=== PATIENT | female | born 1955 | race Caucasian/White ===

== ENCOUNTER → 2018-06-30 11:20 | Outpatient (CLI) | payer OTHER, SELFPAY ==
[2018-06-30 10:25] VITALS: BMI 24.0
[2018-06-30 14:21] LABS: BUN 21 mg/dL (7-18); Creatinine, Serum 0.88 mg/dL (0.55-1.02); Glucose 91 mg/dL (74-106)
[2018-06-30 14:22] LABS: Anion Gap 8 (5-15); Calcium,Total 9.2 mg/dL (8.5-10.1); Chloride 107 mmol/L (98-107); Cholesterol 228 mg/dL (200); EST Glomerular Filtration Rate 69 mL/min (>60); Est Glom Filt Rate - Afr Amer 84 mL/min (>60); High Density Lipoprotein 70 mg/dL; Sodium Level 143 mmol/L (136-145); Triglycerides 122 mg/dL; Very Low Density Lipoprotein 24 mg/dL (5-40)
--- OUTSIDE RECORDS SUMMARY | 2018-08-25 20:16 | XMS RPT_ITS ---
:1955 Author Organization OHIP Care Team Providers Name Role Phone Elfego Washington Attending Unavailable BrownHarveyElfego Referring Unavailable Brown, Elfego Attending Unavailable Brown, Elfego Referring Unavailable Brown, Elfego Primary Care Unavailable PROBLEMS PROBLEMS DATE TYPE CONDITION / CODE ATTENDING STATUS SOURCE 06/30/2018 Unknown Z23 - Encounter for Elfego Washington Active [place] immunization / Community Z23(ICD-10) Hospital Repository 06/30/2018 Unknown Z83.3 - Family Elfego Washington Active [place] history of diabetes Community mellitus / Hospital Z83.3(ICD-10) Repository 06/30/2018 Unknown M94.0 - Elfego Washington Active [place] [facility] [[facility]] / Repository M94.0(ICD-10) PROCEDURES PROCEDURES No Procedure Records FoundRESULTS RESULTS BASIC METABOLIC Collected: 06/30/2018 Status: F Source: [place] PROFILE (BMP) 11:28 AM [facility] REPOSITORY TYPE CODE TESTS RESULT OUT OF RANGE REFERENCE UNITS LAB L501.0100 74-106 mg/dL Normal GLU 91 Result Comment: Please note revised GLUCOSE reference range effective 2017. LAB L501.1000 7-18 mg/dL High BUN 21 LAB L501.1100 0.55-1.02 mg/dL Normal CREAT,SERUM 0.88 Result Comment: The validity of the calculated GFR AND GFRAA in patients over 70 years has not been determined. Clinical correlation is essential. LAB L501.1110 >60 mL/min Normal EST GFR 69 Result Comment: Non- GFR Calc LAB L501.1115 >60 mL/min Normal EST GFR - AA 84 Result Comment: GFR Calc LAB L501.1300 10-20 RATIO High BUN/CRE 24.0 LAB L501.2200 8.5-10.1 mg/dL CA Normal 9.2 LAB L501.5300 136-145 mmol/L NA Normal 143 LAB L501.5600 3.5-5.1 mmol/L K Normal 4.0 LAB L501.5900 98-107 mmol/L CL Normal 107 LAB L501.6100 21.0-32.0 mmol/L Normal CO2 28.0 LAB L501.6200 5-15 Normal GAP 8 Performed By: #### L500.2500, L500.4100 #### [facility] [address] [place], [address] LIPID PROFILE Collected: 06/30/2018 Status: F Source: BRIXEY 11:28 AM [facility] REPOSITORY TYPE CODE TESTS RESULT OUT OF RANGE REFERENCE UNITS LAB L501.4900 200 mg/dL High CHOL 228 Result Comment: <200 mg/dL Desirable 200-240 mg/dL Borderline >240 mg/dL High Risk LAB L501.5000 mg/dL Normal TRIG 122 Result Comment: The drugs N-Acetylcysteine and Metamizole may falsely depress this assay. Serum Triglycerides Reference Interval Normal <150 mg/dL Borderline high 150 - 199 mg/dL High 200 - 499 mg/dL Very High > or = 500 mg/dL LAB L501.6400 mg/dL Normal HDL 70 Result Comment: The drugs N-Acetylcysteine and Metamizole may falsely depress this assay. Reference Range HDL <40 mg/dL Low HDL Cholesterol HDL >or= 60 mg/dL High HDL Cholesterol LAB L501.6500 0-130 mg/dL High LDL 134 LAB L501.6600 5-40 mg/dL Normal VLDL 24 Performed By: #### L500.2500, L500.4100 #### [facility] [address] 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 Chief Complaint: pain through collar area Is patient in pain?: Yes (intercostal, collar area, with ROM) Pain scale (1-10): 3 Allergies clindamycin Allergy (Severe, Verified 06/30/18 10:21) cdif tetracycline Allergy (Intermediate, Verified 06/30/18 10:21) hives Medications diclofenac sodium 50 mg tablet,delayed release 50 mg PO BID #20 tab 06/30/18 [Rx Confirmed 06/30/18] Post menopausal: Yes PFSH Surgical History H/O lumpectomy (Acute) History of back surgery (Acute) Family History Sister Alcoholic Anxiety Mother Arthritis Social History Smoking Status: Never smoker alcohol intake: current alcohol intake frequency: 0-2 drinks per day Alcohol type: wine substance use type: does not use what type of physical activity do you participate in: walking HPI HPI Chief Complaint: pain through collar area Details: ANNABELLA SPRAGUE, is a 62 F who presents to the office today for vague chest pain that is worse on motion. It is not an exertional chest pain when it started several weeks ago it was almost in the epigastric area but now she feels it in the collarbone area. It is worse when she moves changes positions slightly sore on touch she has had problems with costochondritis in the past and feels that this is very similar to her previous pain. ROS Const Constitutional: No body ache, chills, headache(s), weakness or fever(s) Eyes Eyes: No blurry vision, change in vision, eye pain or discharge ENT ENT: No headache(s), abnormal hearing, ear pain, ear pressure, tinnitus, dizziness/vertigo or balance problems Resp Respiratory: No cough, shortness of breath or wheezing Cardio Cardiology: No chest pain at rest, shortness of breath, dyspnea on exertion or palpitations Gastro GI: No abdominal pain or bloating Musc Musculoskeletal: Positive for joint pain (left shoulder) and other (intercostal, collar area discomfort) Skin Skin: Positive for lesions (spot on forhead) Neuro Neurology: No headache(s), weakness or abnormal hearing Aller/Imm Allergy/Immunologic: No wheezing Exam Const General: cooperative, healthy appearing, no acute distress Nutritional Appearance: average body habitus Orientation: oriented x3 Neck Neck: normal visual inspection, no lymphadenopathy Neck mass: No Thyroid: thyroid normal Chest Chest palpation AND inspection: normal inspection of the chest, localized rib tenderness with anteroposterior compression Resp Effort AND Inspection: normal respiratory effort Auscultation: Bilateral: Clear to Auscultation Cardio Rate: regular rate Rhythm: regular rhythm Skin Lesions: lesion noted (papilloma on the forehead) Neuro General: oriented x3 Cranial Nerves: CN's II-XI intact bilaterally Extrem General: normal exam except as noted Psych Appearance: grossly normal Mental Status: mental status grossly normal Immunizations Afluria Quad 2471-5234 (PF) Performing Provider: Elfego Washington DO Administered by: Radha Man on 06/30/18 11:07 Dose Route Admin Location Lot Number Expiration Date NDC Salvage Supervisor 60 mcg IM Left Deltoid [id number] 01/30/19 19559-524-28 SEQIRUS VIS Given Date VIS Publication Date 06/30/18 03/09/15 Eligibility Eligibility Date Assessment AND Plan Problems 1. Costochondritis M94.0 2. Family history of diabetes mellitus Z83.3 3. Immunization due Z23 Plan This patient was basically here to establish care but she also has some other questions. She periodically gets this costochondritis of the chest wall diclofenac is worked in the past and she wanted some more. I also met manipulatively treated her upper dorsal area as I think that was part of the problem for the costochondritis. She needed a flu shot that was given and has not had any preventative blood work which was also ordered physically other than the mild chest tenderness everything seemed to be completely normal. Orders Orders: Medications New: Discontinued: Afluria Quad 8302-6770 (PF) (flu vacc quad 2018(5 y60 mcg (0.5 mL) IM ONCE 1 mL 0RF NS Z23 r up)-PF) Discontinued Reason: Office Medicatio n has been Documented as given Plan Detail Follow Up 1 Year Coding Level of Care Code Off vis,est,level 3 Diagnoses Costochondritis M94.0 Family history of diabetes mellitus Z83.3 Immunization due Z23 06/30/18 1116 <Electronically signed by Elfego R Brown DO> Date Elfego Washington DO Cosignregis Signature: Date (if applicable) CC: ALLERGIES ALLERGIES DATE TYPE / CODE NAME / CODE REACTION SEVERITY SOURCE 06/30/2018 Drug tetracycline Hives MO [facility] Allergy/4160 /[id number]( Hospital [address]67(SNOMED RXNORM) Repository CT) 06/30/2018 Drug clindamycin/ cdif SV [facility] Allergy/4160 [id number]( Hospital [address]09(SNOMED XNORM) Repository CT) ENCOUNTERS ENCOUNTERS ADMIT/DISCHARGE ACCOUNT ADMITTING ENCOUNTER LOCATION SOURCE NUMBER CLASS 06/30/2018 [id number] Ambulatory [place] 0 [facility] ing:MTLAB Repository 06/30/2018/ [id number] Ambulatory BMSBuilding:B [place] 8 8 [place].[facility] Repository PAYERS PAYERS ENCOUNTER GUARANTOR PAYER SUBSCRIBER SOURCE 06/30/2018 ANNABELLA S Primary ANNABELLA S [place] [id number] Insurance:MEDICAL PARFITTDOB: [id number] [address]Foq: Number: Repository [id number] () Date:3235-31-21YF [address] [place] [phone]: 06/30/2018 Secondary NOT GIVENUNK [place] Insurance:SELF PAY [facility] Number: Effective Repository Date:2018-06-30 06/30/2018 ANNABELLA Primary ANNABELLA Leonard [id number] Insurance:MEDICAL PARFITTDOB: [facility] [id number] [facility] [address]Bde: Number: Repository [id number] () Date:6072-20-09ZY [address], [place] [address]XK: 06/30/2018 Secondary NOT GIVENUNK [place] Insurance:SELF PAY [facility] Number: Effective Repository Date:2018-06-11
== END ==
PROVIDERS: Family Provider Family Medicine; PCP Family Medicine; Referring Provider Family Medicine; Visit Provider Family Medicine
DX: Z83.3 Family history of diabetes mellitus (principal)
CPT/HCPCS: 36415; 80048; 80061

== ENCOUNTER → 2018-08-24 09:23 | Outpatient (CLI) | payer OTHER, SELFPAY ==
[2018-08-18 16:10] VITALS: BMI 24.0
--- NOTE | 2018-08-24 09:26 | RAD_ITS ---
STUDY: X-RAY CHEST REASON FOR EXAM: Female, 63 years old. Chest pain TECHNIQUE: PA and lateral views of the chest. COMPARISON: None. FINDINGS: The lungs are clear and expanded. There is no demonstrated pleural abnormality. Normal size heart. Normal mediastinum and papo. Normal visualized pulmonary arteries. Normal visualized aortic arch and descending thoracic aorta. Normal visualized thoracic spine. Normal visualized ribs, clavicles, and shoulders. There is no demonstrated abnormality of the visualized soft tissue structures of the upper abdomen. RAD/Chest PA and Lateral IMPRESSION: Normal x-ray examination of the chest. Electronically Signed: Foster Vieyra DO at 9:59 EST Tel , Service support ,
[2018-08-24 10:40] LABS: Erythrocyte Sedimentation Rate 4 mm/hr (0-30)
--- OUTSIDE RECORDS SUMMARY | 2018-10-26 10:41 | XMS RPT_ITS ---
:1955 Author Organization OHIP Care Team Providers Name Role Phone Brown, Elfego Attending Unavailable Brown, Elfego Referring Unavailable Brown, Elfego Attending Unavailable Brown, Elfego Referring Unavailable Brown, Elfego Primary Care Unavailable Brown, Elfego Attending Unavailable Brown, Elfego Referring Unavailable Brown, Elfego Attending Unavailable Brown, Elfego Referring Unavailable Brown, Elfego Primary Care Unavailable PROBLEMS PROBLEMS DATE TYPE CONDITION / CODE ATTENDING STATUS SOURCE 08/24/2018 Unknown R07.89 - Other BrownElfego Active [place] chest pain / Community R07.89(ICD-10) Hospital Repository 08/24/2018 Unknown M94.0 - Brown, Elfego Active [place] [facility] / Repository M94.0(ICD-10) 06/30/2018 Unknown Z23 - Encounter for Elfego Washington Active [place] immunization / Community Z23(ICD-10) Hospital Repository 06/30/2018 Unknown Z83.3 - Family Elfego Washington Active [place] history of diabetes Community mellitus / Hospital Z83.3(ICD-10) Repository PROCEDURES PROCEDURES No Procedure Records FoundRESULTS RESULTS ERYTHROCYTE SED RATE Collected: 08/24/2018 Status: F Source: [place] 9:28 AM [facility] REPOSITORY TYPE CODE TESTS RESULT OUT OF RANGE REFERENCE UNITS LAB L102.0000 0-30 mm/hr Normal SED RATE 4 Performed By: #### L101.9900 #### [facility] [address] [place] [address]. [place], [address] CHEST PA AND LATERAL Observed: 08/24/2018 Status: F Source: [place] 9:27 AM [facility] REPOSITORY [facility] Imaging Services [address] [place] [address] Chest PA and Lateral MR#: [id number] Acct: [id number] Name: ANNABELLA SPRAGUE Rep #: [id number] : 1955 F 63 From: Foster Vieyra DO PCP: Elfego Washington DO Status: REG CLI Study: Chest PA and Lateral Date of Exam: 08/24/18 Exam# [id number] Ordering Dr: Elfego Washington DO STUDY: X-RAY CHEST REASON FOR EXAM: Female, 63 years old. Chest pain TECHNIQUE: PA and lateral views of the chest. COMPARISON: None. FINDINGS: The lungs are clear and expanded. There is no demonstrated pleural abnormality. Normal size heart. Normal mediastinum and papo. Normal visualized pulmonary arteries. Normal visualized aortic arch and descending thoracic aorta. Normal visualized thoracic spine. Normal visualized ribs, clavicles, and shoulders. There is no demonstrated abnormality of the visualized soft tissue structures of the upper abdomen. RAD/Chest PA and Lateral IMPRESSION: Normal x-ray examination of the chest. Electronically Signed: Foster Vieyra DO at 9:59 EST Tel , Service support , CC: Elfego Washington DO Core Winding Operator: Signed INTERNAL MEDICINE Observed: 08/18/2018 Status: F Source: JULIANA OFFICE VISIT 4:54 PM [facility] [address] [place] [address] [place] [address] OFFICE VISIT Date of Service: 08/18/18 MR#: [id number] Acct: [id number] Name: ANNABELLA SPRAGUE Rep #: [id number] : 1955 Provider: Elfego Washington DO Age/Sex: 63/F Location: [facility] Status: Signed Intake Vital Signs08/18/18 Body Mass Index (BMI) 24.0 08/18/18 Height 5 ft 8 in Intake Visit Reasons: problem has not resolved Chief Complaint: inflamation in the neck and collar area Is patient in pain?: Yes (neck ) Pain scale (1-10): 4 Allergies clindamycin Allergy (Severe, Verified 06/30/18 10:21) [...] participate in: walking HPI HPI Chief Complaint: inflamation in the neck and collar area Details: ANNABELLA SPRAGUE, is a 63 F who presents to the office today for vague swelling and stiffness in the right and left cerebral supraclavicular area. The pain is rather migratory it is not intense but it is something that bothers her. ROS Const Constitutional: No weight change, body ache, chills, fatigue, sleep problems, fever(s), change in appetite, snoring, weakness, frequent falls, headache(s) or excessive sweating Eyes Eyes: No change in vision, eye pain, light sensitivity or blurry vision ENT ENT: Positive for neck pain; no headache(s), abnormal hearing, ear pain, tinnitus, nasal congestion or sore throat Resp Respiratory: No snoring, cough, shortness of breath or wheezing Cardio Cardiology: No excessive sweating, chest pain at rest, chest pain with exertion, shortness of breath, dyspnea on exertion, palpitations, orthopnea or lightheadedness Gastro GI: No abdominal pain, change in bowel habits, constipation, diarrhea, vomiting, nausea/dyspepsia or cramping Genitourinary-Female: No burning urination, painful urination, urinary incontinence, urinary frequency, abnormal vaginal bleeding, pelvic pain or other Musc Musculoskeletal: Positive for neck pain; no abnormal walking, joint pain, back pain, limited range of motion, numbness or tingling Skin Skin: No redness, dry skin, itching, lesions, wounds or rash Neuro Neurology: No weakness, frequent falls, headache(s), abnormal hearing, abnormal walking, numbness, tingling, abnormal speech, dizziness or memory loss Psych Psychiatric: No change in appetite, No memory loss, No anxiety, No depression, No Thoughts of harming yourself/Others Endo Endocrine: No fatigue, excessive sweating, cold intolerance, increased thirst/drinking, heat intolerance, flushing or increased hunger Aller/Imm Allergy/Immunologic: No wheezing, itchy eyes, hives or seasonal allergy symptoms Liang/Lymp Hematologic/Lymphatic: No easy bleeding, easy bruising or enlarged lymph nodes Exam Const General: cooperative, healthy appearing, no [...] normal Mental Status: mental status grossly normal Assessment AND Plan Problems 1. Supraclavicular fossa fullness R22.2 Plan I have very carefully inspected both supraclavicular areas and could not find any abnormality at all other than some very subjective minimal tenderness and slight subjective fullness on the left side. I thought for completeness we should get a chest x-ray get a sed rate to make sure this is not some variant of polymyalgia rheumatica. She also wanted mammograms and bone density test ordered as she no longer sees a management rep and I complied with her request. Orders Orders: Coding Level of Care Code Off vis,est,level 3 Diagnoses Supraclavicular fossa fullness R22.2 08/18/18 2382 <Electronically signed by Elfego Washington DO> Date Elfegoshavon Presley Signature: Date (if applicable) CC: BASIC METABOLIC Collected: 06/30/2018 Status: F Source: [place] PROFILE (BMP) 11:28 AM [facility] REPOSITORY TYPE CODE TESTS RESULT OUT OF [...] 8 Performed By: #### L500.2500, L500.4100 #### [facility] [address] [place], [id number] LIPID PROFILE Collected: 06/30/2018 Status: F Source: [place] 11:28 AM [facility] REPOSITORY TYPE CODE TESTS RESULT OUT OF [...] 24 Performed By: #### L500.2500, L500.4100 #### [facility] [address] 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 Chief Complaint: pain [...] mental status grossly normal Immunizations Afluria Quad 0831-2839 (PF) Performing Provider: Elfego Washington DO Administered by: Radha Man on 06/30/18 11:07 Dose Route Admin Location Lot Number Expiration Date NDC Procurement Services Manager 60 mcg IM Left Deltoid [id number] 01/30/19 62451-569-68 SEQIRUS VIS Given Date VIS Publication Date [...] Orders Orders: Medications New: Discontinued: Afluria Quad 5586-6116 (PF) (flu vacc quad 2018(5 y60 mcg (0.5 mL) IM ONCE 1 mL 0RF NS Z23 r up)-PF) Discontinued Reason: Office Medicatio n has been Documented as given Plan Detail Follow Up 1 Year Coding Level of Care Code Off vis,est,level 3 Diagnoses Costochondritis M94.0 Family history of diabetes mellitus Z83.3 Immunization due Z23 06/30/18 1116 <Electronically signed by Elfego Washington DO> Date Elfego Washington DO Cosigner Signature: Date (if applicable) CC: ALLERGIES ALLERGIES DATE TYPE / CODE NAME / CODE REACTION SEVERITY SOURCE 06/30/2018 Drug tetracycline Hives MO [facility] Allergy/4160 /[id number]( [place] 1300902(SNOMED RXNORM) Repository CT) 06/30/2018 Drug clindamycin/ cdif SV [facility] Allergy/4160 [id number]([place] 4329502(SNOMED XNORM) Repository CT) ENCOUNTERS ENCOUNTERS ADMIT/DISCHARGE ACCOUNT ADMITTING ENCOUNTER LOCATION SOURCE NUMBER CLASS 08/24/2018 [id number] Ambulatory [place] 6 [facility] ing:LAB Repository 08/18/2018/ [id number] Ambulatory BMSBuilding:B [place] 9 7 [place].[facility] Repository 06/30/2018 [id number] Ambulatory [place] 0 [facility] ing:MTLAB Repository 06/30/2018/ [id number] Ambulatory BMSBuilding:B [place] 8 8 [place] [facility] [place] PAYERS PAYERS ENCOUNTER GUARANTOR PAYER SUBSCRIBER SOURCE 08/24/2018 ANNABELLA S Primary ANNABELLA [facility] [place] [id number] Insurance:MEDICAL PARFITTDOB: [id number] [address]Rom: Number: Repository [id number] () Date:4494[place]27-[place] [id number]: 08/24/2018 Secondary NOT GIVENUNK [place] Insurance:SELF PAY [facility] Number: Effective Repository Date:2018-08-24 08/18/2018 ANNABELLA S Primary ANNABELLA Leonard [id number] Insurance:MEDICAL PARFITTDOB: [facility] [id number] Cross Hospital [address]Iog: Number: Repository [id number] () Date:2218-36-03OM[place] [id number]: 08/18/2018 Secondary NOT GIVENUNK [place] Insurance:SELF PAY [facility] Number: Effective Repository Date:2018-08-12 06/30/2018 ANNABELLA S Primary ANNABELLA Leonard [id number] Insurance:MEDICAL PARFITTDOB: [facility] [id number] Cross Hospital [address]Oef: Number: Repository [id number] () Date:8314-88-30FX [address] [place] [phone]: 06/30/2018 Secondary NOT GIVENUNK [place] Insurance:SELF PAY [facility] Number: Effective Repository Date:2018-06-30 06/30/2018 ANNABELLA Primary ANNABELLA [address] [id number] Insurance:MEDICAL PARFITTDOB: Community COMET LILIYA [facility] [id number] Cross Hospital [address]Jpy: Number: Repository [id number] () Date:0007-67-21PJ [address] [place] [phone]: 06/30/2018 Secondary NOT GIVENUNK [place] Insurance:SELF PAY [facility] Number: Effective Repository Date:2018-06-11
== END ==
PROVIDERS: Family Provider Family Medicine; PCP Family Medicine; Referring Provider Family Medicine; Visit Provider Family Medicine
DX: M94.0 Chondrocostal junction syndrome [Tietze] (principal); R07.89 Other chest pain
CPT/HCPCS: 36415; 71046; 85652

== ENCOUNTER → 2018-11-23 14:04 | Outpatient (CLI) | payer OTHER, SELFPAY ==
[2018-08-18 16:10] VITALS: BMI 24.0
--- NOTE | 2018-11-23 14:48 | BI_ITS ---
MAMMOGRAPHY - BILATERAL SCREENING REASON FOR EXAM: Female, 63 years old. Routine annual screening examination. PERTINENT HISTORY: Sister with breast cancer. Remote right excisional breast biopsy. TECHNIQUE: Digital bilateral breast terrence (3D mammographic acquisition) in the CC and MLO projections. 2-D mediolateral oblique (MLO) and craniocaudad (CC) views of both breasts were obtained. CAD: Full Field Digital Mammography with Computer Added Detection was performed. COMPARISON: Comparison is made with prior outside examination March 12, 2006. FINDINGS: Breast Composition: The breasts are heterogeneously dense, which may obscure small masses. There are no dominant masses or suspicious calcifications. No other significant abnormalities are identified. There has been no significant change since the prior study. BI/SCREEN MAMM (CAD) W/TERRENCE BILAT IMPRESSION: Stable bilateral screening mammogram. Yearly follow-up mammogram recommended. (A) ASSESSMENT CATEGORY: BIRADS Category 1: Negative. A letter regarding these results will be sent to the patient by the facility within 30 days. Approximately 10% of breast cancers are not detected by mammography. A normal mammogram should not delay biopsy of a clinically suspicious abnormality. [id number] Electronically Signed: James Salmeron, at 9:10 EDT , Service support ,
--- NOTE | 2018-11-23 14:50 | BD_ITS ---
STUDY: DUAL ENERGY X-RAY ABSORPTIOMETRY / DXA REASON FOR EXAM: Female, 63 years old. Early menopause. No loss of height. TECHNIQUE: Bone Mineral Density (BMD) measurements of lumbar spine and bilateral hips were obtained. COMPARISON: None. FINDINGS: Lumbar Spine (L1-L4): g/cm2 (1.083) / T-score (-0.7) / Z-score (0.8) Findings are suggestive of normal bone density with a low fracture risk. Left Femur Total: g/cm2 (0.940) / T-score (-0.5) / Z-score (0.6) Left Femoral Neck: g/cm2 (0.877) / T-score (-1.2) / Z-score (0.3) Right Femur Total: g/cm2 (0.960) / T-score (-0.4) / Z-score (0.8) Right Femoral Neck: g/cm2 (0.878) / T-score (-1.1) / Z-score (0.3) BD/Dexa Bone Density Study IMPRESSION: The patient is considered osteopenic as outlined below according to World Adolfo Organization (WHO) criteria with a low fracture risk. Reference Information: The T-score is the number of standard deviations above or below the standard which is normal for young adults at their peak bone mineral density. The World Health Organization (WHO) interprets the T-scores as follows: Above -1 Normal bone density Between -1 and -2.5 Osteopenia Equal to / or below -2.5 Osteoporosis As a practical clinical guideline, osteopenia may be graded as follows: Mild -1 through -1.5 Moderate -1.6 through -2.0 Severe -2.1 through -2.4 The Z-score is the number of standard deviations above or below age-matched controls. A Z-score of less than -1.5 would be considered abnormal. References: 1. NIH Osteoporosis and Related Bone Diseases http://www.osteo.org 2. International Society for Clinical Densitometry http://www.iscd.org 3. National Osteoporosis Foundation http://www.nof.org Electronically Signed: James Salmeron, at 8:41 EDT , Service support ,
== END ==
PROVIDERS: Family Provider Family Medicine; PCP Family Medicine; Referring Provider Family Medicine; Visit Provider Family Medicine
DX: Z12.31 Encounter for screening mammogram for malignant neoplasm of breast (principal); Z78.0 Asymptomatic menopausal state
CPT/HCPCS: 77063; 77067; 77080

== ENCOUNTER → 2019-04-01 11:43 | Outpatient (CLI) | payer OTHER, SELFPAY ==
[2019-04-01 11:13] VITALS: BMI 23.6
--- NOTE | 2019-04-01 11:45 | RAD_ITS ---
STUDY: X-RAY RIGHT FOOT, FIFTH TOE REASON FOR EXAM: Female, 63 years old. Pain following injury. TECHNIQUE: 3 view(s) of the toe were obtained. COMPARISON: None. FINDINGS: Normal visualized metatarsus. Normal metatarsophalangeal (M.T.P) joint. Normal interphalangeal joints. Slightly dorsally displaced fracture at the base of the distal phalanx of the fifth toe with overlying soft tissue swelling. Soft tissue swelling. RAD/Toe(s) Min 2 Views IMPRESSION: Sightly posteriorly displaced fracture at the base of the distal phalanx of the fifth toe with overlying soft tissue swelling. Electronically Signed: James Salmeron, at 13:04 EDT , Service support ,
== END ==
PROVIDERS: Family Provider Family Medicine; PCP Family Medicine; Referring Provider Nurse Practitioner Family; Visit Provider Nurse Practitioner Family
DX: S97.121A Crushing injury of right lesser toe(s), initial encounter (principal); X58.XXXA Exposure to other specified factors, initial encounter; Y93.9 Activity, unspecified; Y92.9 Unspecified place or not applicable; Y99.9 Unspecified external cause status
CPT/HCPCS: 73660

== ENCOUNTER → 2019-05-30 10:14 | Outpatient (CLI) | payer OTHER, SELFPAY ==
[2019-04-20 11:08] VITALS: BMI 23.6
--- NOTE | 2019-05-30 10:16 | MRI_ITS ---
STUDY: MRA OF THE HEAD WITHOUT CONTRAST REASON FOR EXAM: Female, 63 years old. Aphasia, memory loss TECHNIQUE: 3-D hhdo-dv-zngahg (TOF) imaging was performed with MIPs. The study was performed unenhanced. COMPARISON: None. FINDINGS: Normal bilateral petrous carotid arteries. Normal right cavernous carotid artery with a normal supraclinoid bifurcation. Normal left cavernous carotid artery with a normal supraclinoid bifurcation. Normal right A1 segments of the anterior cerebral artery. Normal left A1 segments of the anterior cerebral artery. Normal intact anterior communicating artery (ACOM). Normal bilateral A2 segments of the anterior cerebral arteries. Normal right M1 and M2 segments of the middle cerebral arteries, with a normal M1 bifurcation. Normal left M1 and M2 segments of the middle cerebral arteries, with a normal M1 bifurcation. Normal right posterior communicating artery (PCOM). Normal left posterior communicating artery (PCOM). Normal bilateral vertebral arteries. Normal basilar artery with a normal basilar bifurcation. The visualized bilateral superior cerebellar (SCA) arteries are normal. Normal bilateral P1, P2 and visualized P3 segments of the posterior cerebral arteries. There is no demonstrated aneurysm of the iliamna of [place]. There is no major vessel occlusion or hemodynamically significant stenosis. There is no demonstrated abnormality of the visualized brain. MRI/MRA Head ONLY without Contrast IMPRESSION: Normal MRA of the head Electronically Signed: Naersh Boogie MD at 11:47 EDT Tel , Service support ,
== END ==
PROVIDERS: Family Provider Family Medicine; PCP Family Medicine; Referring Provider Family Medicine; Visit Provider Family Medicine
DX: R47.01 Aphasia (principal); I63.81 Other cerebral infarction due to occlusion or stenosis of small artery
CPT/HCPCS: 70544

== ENCOUNTER → 2020-12-12 11:27 | Outpatient (CLI) | payer MEDICARE, SELFPAY ==
[2020-12-12 11:07] VITALS: BMI 23.6
[2020-12-12 12:22] LABS: Absolute Lymphocyte Count 2.15 X10^3/uL (0.83-4.51); Absolute Neutrophil Count 2.6 X10^3/uL (2.0-7.7); Basophil# 0.01 X10^3/uL; Basophil% 0.2 % (0-1); Eosinophil# 0.09 X10^3/uL; Eosinophils% 1.7 % (0-5); Hematocrit 46.5 % (37-47); Hemoglobin 14.3 g/dL (12.0-15.0); Lymphocyte # 2.15 X10^3/ul (0.83-4.51); Lymphocyte % 41.2 % (19-41); Mean Corp Hgb Conc 30.8 g/dL (32-36); Mean Corpuscular Hgb 31.2 pg (27.0-32.0); Mean Corpuscular Volume 101.5 fL (81-99); Mean Platelet Vol. 11.5 fl (6.2-12.0); Monocyte# 0.38 X10^3/uL; Monocyte% 7.3 % (0-10); NRBC Flagged by Analyzer 0 % (0-5); Neutrophil # 2.58 X10^3/uL (2.7-7.7); Neutrophil % 49.4 % (47-70); Platelet Count 256 K/mm3 (150-450); RBC Distribution Width CV 13.2 % (11.6-14.6); RBC Distribution Width SD 50.3 fl (35.1-43.9); Red Blood Count 4.58 M/mm3 (4.2-5.4); White Blood Count 5.2 K/mm3 (4.4-11.0)
[2020-12-12 12:56] LABS: ALB/GLOB Ratio 1.2 RATIO (0.9-2.4); AST(SGOT) 25 U/L (15-37); Alanine Aminotransfer ALT/SGPT 39 U/L (13-56); Albumin, Serum 3.9 g/dL (3.2-5.0); Alkaline Phosphatase 55 U/L (45-117); Anion Gap 5 (5-15); BUN 17 mg/dL (7-18); BUN/Creat Ratio 20.9 RATIO (10-20); Calcium,Total 9.3 mg/dL (8.5-10.1); Chloride 108 mmol/L (98-107); Cholesterol 214 mg/dL (200); Creatinine, Serum 0.82 mg/dL (0.55-1.02); EST Glomerular Filtration Rate 75 mL/min (>60); Est Glom Filt Rate - Afr Amer 90 mL/min (>60); Globulin 3.2 g/dL (2.2-4.2); Glucose 102 mg/dL (74-106); High Density Lipoprotein 78 mg/dL; Potassium 4.3 mmol/L (3.5-5.1); Protein, Total 7.1 g/dL (6.4-8.2); Sodium Level 142 mmol/L (136-145); Triglycerides 99 mg/dL; Very Low Density Lipoprotein 20 mg/dL (5-40)
[2020-12-12 13:00] LABS: Vitamin D,25 Hydroxy 38.4 ng/mL
== END ==
PROVIDERS: PCP Family Medicine; Referring Provider Family Medicine; Visit Provider Family Medicine
DX: M81.0 Age-related osteoporosis without current pathological fracture (principal); I63.81 Other cerebral infarction due to occlusion or stenosis of small artery
CPT/HCPCS: 36415; 80053; 80061; 82306; 85025

== ENCOUNTER → 2020-12-25 09:38 | Outpatient (CLI) | payer MEDICARE, SELFPAY ==
[2020-12-12 11:07] VITALS: BMI 23.6
[2020-12-25 12:09] LABS: Platelet Count 271 K/mm3 (150-450); RET-HE 36.7 pg (30-35); Reticulocyte Count 1.41 % (0.5-1.5)
[2020-12-25 12:23] LABS: Vitamin B12 710 pg/mL (211-911)
== END ==
PROVIDERS: PCP Family Medicine; Referring Provider Family Medicine; Visit Provider Family Medicine
DX: D53.9 Nutritional anemia, unspecified (principal)
CPT/HCPCS: 36415; 82607; 82746; 85045

== ENCOUNTER → 2022-05-22 | Outpatient (CLI) | payer MEDICARE, SELFPAY ==
[2022-05-22 12:13] LABS: Absolute Lymphocyte Count 2.27 X10^3/uL (0.83-4.51); Absolute Neutrophil Count 2.5 X10^3/uL (2.0-7.7); Basophil# 0.02 X10^3/uL; Basophil% 0.4 % (0-1); Eosinophil# 0.12 X10^3/uL; Eosinophils% 2.2 % (0-5); Hematocrit 44.9 % (37-47); Hemoglobin 14.8 g/dL (12.0-15.0); Lymphocyte # 2.27 X10^3/ul (0.83-4.51); Lymphocyte % 41.9 % (19-41); Mean Platelet Vol. 10.9 fl (6.2-12.0); Monocyte# 0.49 X10^3/uL; NRBC Flagged by Analyzer 0 % (0-5); Neutrophil % 46.1 % (47-70); Platelet Count 257 K/mm3 (150-450); RBC Distribution Width CV 13.3 % (11.6-14.6); RBC Distribution Width SD 49.1 fl (35.1-43.9); Red Blood Count 4.49 M/mm3 (4.2-5.4); White Blood Count 5.4 K/mm3 (4.4-11.0)
[2022-05-22 12:32] LABS: ALB/GLOB Ratio 1.1 RATIO (0.9-2.4); AST(SGOT) 19 U/L (15-37); Alanine Aminotransfer ALT/SGPT 29 U/L (13-56); Albumin, Serum 3.4 g/dL (3.2-5.0); Alkaline Phosphatase 52 U/L (45-117); Anion Gap 4 (5-15); BUN 16 mg/dL (7-18); BUN/Creat Ratio 17.3 RATIO (10-20); Calcium,Total 8.8 mg/dL (8.5-10.1); Chloride 111 mmol/L (98-107); Cholesterol 204 mg/dL (200); Creatinine, Serum 0.93 mg/dL (0.55-1.02); EST Glomerular Filtration Rate 64 mL/min (>60); Est Glom Filt Rate - Afr Amer 78 mL/min (>60); Globulin 3.1 g/dL (2.2-4.2); Glucose 109 mg/dL (74-106); High Density Lipoprotein 64 mg/dL; Potassium 4.8 mmol/L (3.5-5.1); Protein, Total 6.5 g/dL (6.4-8.2); Sodium Level 142 mmol/L (136-145); Triglycerides 156 mg/dL; Very Low Density Lipoprotein 31 mg/dL (5-40)
== END | disposition home or self-care (01) ==
PROVIDERS: PCP Family Medicine; Referring Provider Family Medicine; Visit Provider Family Medicine
DX: D53.9 Nutritional anemia, unspecified (principal); I63.81 Other cerebral infarction due to occlusion or stenosis of small artery
CPT/HCPCS: 36415; 80053; 80061; 85025

== ENCOUNTER → 2022-07-03 | Outpatient (CLI) | payer MEDICARE, SELFPAY ==
--- NOTE | 2022-07-03 14:41 | BI_ITS ---
MAMMOGRAPHY - BILATERAL SCREENING REASON FOR EXAM: Female, 66 years old. Routine annual screening examination. PERTINENT HISTORY: Sister with breast cancer. Remote right excisional breast biopsy. TECHNIQUE: Digital bilateral breast terrence (3D mammographic acquisition) in the CC and MLO projections. 2-D mediolateral oblique (MLO) and craniocaudad (CC) views of both breasts were obtained. CAD: Full Field Digital Mammography with Computer Added Detection was performed. COMPARISON: Comparison is made with prior study dated 11/23/2018 FINDINGS: Breast Composition: The breasts are heterogeneously dense, which may obscure small masses. There are no dominant masses or suspicious calcifications. Stable small benign-appearing bilateral axillary lymph nodes. No other significant abnormalities are identified. There has been no significant change since the prior study. BI/SCRN MAMM (CAD)W/TERRENCE BILAT IMPRESSION: Stable bilateral screening mammogram. Yearly follow-up mammogram recommended. (A) ASSESSMENT CATEGORY: BIRADS Category 2: Benign. A letter regarding these results will be sent to the patient by the facility within 30 days. Approximately 10% of breast cancers are not detected by mammography. A normal mammogram should not delay biopsy of a clinically suspicious abnormality. [id number] Electronically Signed: James Salmeron MD at 8:30 EST ,
--- NOTE | 2022-07-03 14:47 | BD_ITS ---
STUDY: DUAL ENERGY X-RAY ABSORPTIOMETRY / DXA REASON FOR EXAM: Female, 66 years old. Osteopenia TECHNIQUE: Bone Mineral Density (BMD) measurements of lumbar spine and bilateral hips were obtained. COMPARISON: Comparison is made with prior study dated 11/23/2018. FINDINGS: Lumbar Spine (L1-L4): g/cm2 (1.004) / T-score (-0.4) / Z-score (1.6) Findings are suggestive of normal bone density with a low fracture risk. Left Femur Total: g/cm2 (0.861) / T-score (-0.7) / Z-score (0.7) Left Femoral Neck: g/cm2 (0.661) / T-score (-1.7) / Z-score (0.0) Right Femur Total: g/cm2 (0.880) / T-score (-0.5) / Z-score (0.9) Right Femoral Neck: g/cm2 (0.693) / T-score (-1.4) / Z-score (0.3) The T-Scores on the most recent prior examination were: Lumbar Spine (L1-L4): There has been worsening of bone density since the previous examination. Left Femur Total: which represents a worsening of 1.6%. Right Femur Total: which represents a worsening of 1.7%. BD/Dexa Bone Density Study IMPRESSION: The patient is considered osteopenic as outlined below according to World Adolfo Organization (WHO) criteria with a moderate fracture risk. There has been worsening of bone density since the previous examination. Reference Information: The T-score is the number of standard deviations above or below the standard which is normal for young adults at their peak bone mineral density. The World Health Organization (WHO) interprets the T-scores as follows: Above -1 Normal bone density Between -1 and -2.5 Osteopenia Equal to / or below -2.5 Osteoporosis As a practical clinical guideline, osteopenia may be graded as follows: Mild -1 through -1.5 Moderate -1.6 through -2.0 Severe -2.1 through -2.4 The Z-score is the number of standard deviations above or below age-matched controls. A Z-score of less than -1.5 would be considered abnormal. References: 1. NIH Osteoporosis and Related Bone Diseases www osteo.org 2. International Society for Clinical Densitometry www iscd.org 3. National Osteoporosis Foundation www nof.org Electronically Signed: James Salmeron MD at 9:51 EST ,
== END | disposition home or self-care (01) ==
LOC: OPBD 14:37
PROVIDERS: PCP Family Medicine; Visit Provider Family Medicine
DX: Z12.31 Encounter for screening mammogram for malignant neoplasm of breast (principal); Z80.3 Family history of malignant neoplasm of breast; Z78.0 Asymptomatic menopausal state
CPT/HCPCS: 77063; 77067; 77080

== ENCOUNTER → 2023-06-11 | Outpatient (CLI) | payer MEDICARE, SELFPAY ==
[2023-06-11 15:04] LABS: Absolute Lymphocyte Count 2.43 X10^3/uL (0.83-4.51); Absolute Neutrophil Count 3.3 X10^3/uL (2.0-7.7); Basophil# 0.02 X10^3/uL; Basophil% 0.3 % (0-1); Eosinophil# 0.16 X10^3/uL; Eosinophils% 2.4 % (0-5); Hemoglobin 14.1 g/dL (12.0-15.0); Lymphocyte # 2.43 X10^3/ul (0.83-4.51); Lymphocyte % 36.9 % (19-41); Mean Corp Hgb Conc 31.3 g/dL (32-36); Mean Corpuscular Hgb 32.2 pg (27.0-32.0); Mean Corpuscular Volume 102.7 fL (81-99); Mean Platelet Vol. 11.9 fl (6.2-12.0); Monocyte# 0.65 X10^3/uL; Monocyte% 9.9 % (0-10); NRBC Flagged by Analyzer 0 % (0-5); Neutrophil # 3.32 X10^3/uL (2.7-7.7); Neutrophil % 50.3 % (47-70); Platelet Count 255 K/mm3 (150-450); RBC Distribution Width CV 12.9 % (11.6-14.6); RBC Distribution Width SD 49.2 fl (35.1-43.9); Red Blood Count 4.38 M/mm3 (4.2-5.4); White Blood Count 6.6 K/mm3 (4.4-11.0)
[2023-06-11 15:29] LABS: AST(SGOT) 12 U/L (15-37); Alanine Aminotransfer ALT/SGPT 24 U/L (13-56); Albumin, Serum 3.5 g/dL (3.2-5.0); Alkaline Phosphatase 53 U/L (45-117); Anion Gap 4 (5-15); BUN 18 mg/dL (7-18); BUN/Creat Ratio 20.1 RATIO (10-20); Calcium,Total 9.3 mg/dL (8.5-10.1); Chloride 111 mmol/L (98-107); EST Glomerular Filtration Rate 66 mL/min (>60); Est Glom Filt Rate - Afr Amer 80 mL/min (>60); Globulin 3.6 g/dL (2.2-4.2); Glucose 108 mg/dL (74-106); Potassium 4.8 mmol/L (3.5-5.1); Protein, Total 7.1 g/dL (6.4-8.2); Sodium Level 142 mmol/L (136-145)
[2023-06-11 15:31] LABS: Vitamin D,25 Hydroxy 49.7 ng/mL
== END | disposition home or self-care (01) ==
LOC: BIMLAB 13:00
PROVIDERS: PCP Family Medicine; Referring Provider Family Medicine; Visit Provider Family Medicine
DX: I63.81 Other cerebral infarction due to occlusion or stenosis of small artery (principal); M85.80 Other specified disorders of bone density and structure, unspecified site
CPT/HCPCS: 36415; 80053; 82306; 85025

== ENCOUNTER → 2023-08-12 | Outpatient (CLI) | payer MEDICARE, SELFPAY ==
--- NOTE | 2023-08-12 10:32 | BI_ITS ---
MAMMOGRAPHY - BILATERAL SCREENING REASON FOR EXAM: Female, 68 years old. Routine annual screening examination. PERTINENT HISTORY: Sister with breast cancer. Remote right excisional breast biopsy. TECHNIQUE: Digital bilateral breast terrence (3D mammographic acquisition) in the CC and MLO projections. 2-D mediolateral oblique (MLO) and craniocaudad (CC) views of both breasts were obtained. CAD: Full Field Digital Mammography with Computer Added Detection was performed. COMPARISON: Comparison is made with prior study dated July 03, 2022 and November 23, 2018. FINDINGS: Breast Composition: The breasts are heterogeneously dense, which may obscure small masses. There are no dominant masses or suspicious calcifications. Stable small benign-appearing bilateral axillary lymph nodes. No other significant abnormalities are identified. There has been no significant change since the prior study. BI/SCRN MAMM (CAD)W/TERRENCE BILAT IMPRESSION: Stable bilateral screening mammogram. Yearly follow-up mammogram recommended. (A) ASSESSMENT CATEGORY: BIRADS Category 2: Benign. A letter regarding these results will be sent to the patient by the facility within 30 days. Approximately 10% of breast cancers are not detected by mammography. A normal mammogram should not delay biopsy of a clinically suspicious abnormality. [id number] Electronically Signed: James Salmeron MD at 12:24 EST ,
--- OUTSIDE RECORDS SUMMARY | 2023-08-12 10:55 | XMS RPT_ITS | CCD ---
Author Name Unknown Address [address] [place] [id number] Organization [facility] Care Team Providers Care Size Maker Name Role Phone Juan R Ellison Attending Elfego Dean Referring Unavailable Eflego Washington Primary Care Unavailable Juan R Ellison Attending Elfego Dean Referring Unavailable Elfego Washington R Primary Care Unavailable Results Test Name Value Interpretation Reference Range Facil ity Encounters Encounter Date Encounter Type Care Provider Facility Start: 10-19-2018 Patient encounter procedure Juan R perla [facility] Facility:[id number] Start: 09-29-2018 Patient encounter procedure Juan R Ellison Facility:[id number] Payers Date Payer Category Payer Unknown [id number] 1955 Unknown [id number] Unknown [id number] Summary Purpose Family History No Family History Records FoundNo Family History Records FoundNo Family History Records Found Advance Directives No Advanced Directives Records FoundNo Advanced Directives Records FoundNo Advanced Directives Records Found Additional Source Comments INFORMATION SOURCE (unrecogn ized section and content) DATE CREATED AUTHOR AUTHOR'S ORGANIZ ATION 01/04/2019 [facility] DATE CREATED AUTHOR AUTHOR'S ORGANIZ ATION 08/06/2019 [facility] FOR RECORDS PERTAINING TO PATIENTS WHO ARE OR HAVE BEEN ENROLLED IN A CHEMICAL DEPENDENCY/SUBSTANCEABUSE PROGRAM, SOME INFORMATION MAY BE OMITTED. This clinical summary was aggregated from multiple sources. Caution should be exercised in using it in the provision of clinical care. This summary normalizes information from multiple sources, and as a consequence, information in this document may materially change the coding, format and clinical context of patient data. In addition, data may be omitted in some cases. CLINICAL DECISIONS SHOULD BE BASED ON THE PRIMARY CLINICAL RECORDS. [facility]. provides no warranty or guarantee of the accuracy or completeness of information in this document.
== END | disposition home or self-care (01) ==
LOC: OPBI 10:31
PROVIDERS: PCP Family Medicine; Referring Provider Family Medicine; Visit Provider Family Medicine
DX: Z12.31 Encounter for screening mammogram for malignant neoplasm of breast (principal); Z80.3 Family history of malignant neoplasm of breast
CPT/HCPCS: 77063; 77067

== ENCOUNTER → 2024-06-16 | Outpatient (CLI) | payer MEDICARE, SELFPAY ==
--- NOTE | 2024-06-16 11:21 | US_ITS ---
INDICATION: post menopausal bleeding EXAMINATION: Ultrasound US Transvaginal Non-OB TECHNIQUE: Transvaginal (for optimal evaluation of the adnexa) pelvic ultrasound was performed. Grayscale, spectral waveform, and color flow Doppler evaluation of the adnexa. COMPARISON: FINDINGS: UTERUS: Anteverted. The uterus measures 6.1 x 4.2 x 2.8 cm. Heterogeneous uterine masses likely fibroids with 2 on the right measuring 2.6 x 1.7 cm and 1.2 x 0.9 cm. One on the left measures 1.4 x 1.1 cm. The endometrial cavity demonstrates fluid with a 6 x 6 x 8 mm nodule. . RIGHT OVARY: Nonvisualization. LEFT OVARY: Nonvisualization. FREE FLUID: None. US/Transvaginal Non- IMPRESSION: Endometrial fluid with a nodule requiring further evaluation. Multiple uterine fibroids. Nonvisualization of the ovaries. Electronically Signed: Adam Rodriguez DO at 9:33 EST Reading Location ID and State: [facility] / [place] Tel [phone], Service support ,
== END | disposition home or self-care (01) ==
LOC: US 11:20
PROVIDERS: PCP Family Medicine; Referring Provider Family Medicine; Visit Provider Family Medicine
DX: N95.0 Postmenopausal bleeding (principal)
CPT/HCPCS: 76830

== ENCOUNTER → 2024-07-13 | Outpatient (CLI) | payer MEDICARE, SELFPAY ==
[2024-07-21 11:08] LABS: HPV APTIMA, High Risk Negative (Negative)
== END | disposition home or self-care (01) ==
LOC: LABSPEC 14:06
PROVIDERS: PCP Family Medicine; Referring Provider Nurse Practitioner Family; Visit Provider Nurse Practitioner Family
DX: Z12.4 Encounter for screening for malignant neoplasm of cervix (principal); Z78.0 Asymptomatic menopausal state
CPT/HCPCS: 87624; 88175; G0145

== ENCOUNTER → 2024-08-11 | Outpatient (CLI) | payer MEDICARE, SELFPAY ==
--- NOTE | 2024-08-11 11:25 | CER_PTH ---
PATIENT: ANNABELLA SPRAGUE LOC: [facility] U#:[id number] AGE/SX: 69/F ROOM: RE08/11/[address]: ROSE MARIE Callaway : 1955 BED: DIS: 08/11/2024 SPEC #: [id number] RECD: 08/11/24 12:08 STATUS: ADRIA RERio #: [id number] SAUNDRA: 08/11/24 11:[address]: Lora Patel NP DEPT: SURGICAL PATHOLOGY RECD BY: Avelina Conley ENTERED: 08/11/24 13:49 SP TYPE: CERV OTHR DR: Dr. Elfego Washington, DO Tissues: Uterine cervix, NOS Procedures: Surgery Specimen Level IV HEADER OPERATION: Polypectomy PRE-OP DIAGNOSIS: Cervical polyp TISSUE SUBMITTED: Cervical polyp MICROSCOPIC DIAGNOSIS Cervical polyp, polypectomy: Benign ectocervical mucosal polyp. ED. 08/12/2024 MICROSCOPIC DESCRIPTION Slides are reviewed. GROSS DESCRIPTION Received is one container labeled with the patient's name and not further designated. The specimen consists of a piece of fonseca-pink polyp measuring 1.2 x 1.0 x 0.5cm. The specimen is bisected and submitted entirely in one cassette. 08/11/2024 TC:5 CPT:13136
== END | disposition home or self-care (01) ==
LOC: LABSPEC 11:35
PROVIDERS: PCP Family Medicine; Referring Provider Nurse Practitioner Women's Health; Visit Provider Nurse Practitioner Women's Health
DX: N84.1 Polyp of cervix uteri (principal)
CPT/HCPCS: 88305

== ENCOUNTER → 2024-08-16 | Outpatient (CLI) | payer MEDICARE, SELFPAY ==
[2024-08-16 15:35] LABS: ALB/GLOB Ratio 1.1 RATIO (0.9-2.4); AST(SGOT) 20 U/L (15-37); Alanine Aminotransfer ALT/SGPT 38 U/L (13-56); Albumin, Serum 4.2 g/dL (3.2-5.0); Alkaline Phosphatase 63 U/L (45-117); Anion Gap 8 (5-15); BUN 19 mg/dL (7-18); Calcium,Total 9.7 mg/dL (8.5-10.1); Chloride 111 mmol/L (98-107); Cholesterol 202 mg/dL (200); EST Glomerular Filtration Rate 58 mL/min (>60); Est Glom Filt Rate - Afr Amer 71 mL/min (>60); Globulin 3.9 g/dL (2.2-4.2); Glucose 100 mg/dL (74-106); High Density Lipoprotein 84 mg/dL; Potassium 4.1 mmol/L (3.5-5.1); Protein, Total 8.1 g/dL (6.4-8.2); Sodium Level 142 mmol/L (136-145); Triglycerides 132 mg/dL; Very Low Density Lipoprotein 26 mg/dL (5-40)
== END | disposition home or self-care (01) ==
LOC: BIMLAB 13:54
PROVIDERS: PCP Family Medicine; Referring Provider Family Medicine; Visit Provider Family Medicine
DX: E78.49 Other hyperlipidemia (principal)
CPT/HCPCS: 36415; 80053; 80061

== ENCOUNTER → 2024-10-11 | Outpatient (CLI) | payer MEDICARE, SELFPAY ==
--- NOTE | 2024-10-11 09:19 | US_ITS ---
PROCEDURE: TRANSVAGINAL NON- (USTVAG), N/A REASON FOR EXAM: PMB TECHNIQUE: Grayscale and color doppler transvaginal pelvic ultrasound was performed. COMPARISON: None FINDINGS: Uterus: 6.8 x 5.6 x 3.0 cm, Retroflexed. Ill-defined heterogeneous mixed echogenicity presumed fibroid posteriorly measures 2.8 x 2.4 x 1.9 cm. This is largely intramural but demonstrates submucosal and subserosal components. Additional hypoechoic presumed fibroid measures 0.9 x 1.2 x 1.1 cm and appears mostly intramural although with a subserosal component. Endometrium: Difficult to discretely measure. Fluid is present in the endometrial cavity, outlining an isoechoic mass measuring 0.8 x 0.6 x 0.7 cm. No detected vascularity. Cervix: Grossly unremarkable.. Right ovary: Not visualized. Left ovary: Nonvisualized. Free fluid: None visualized. Other: None. US/Transvaginal Non- IMPRESSION: 1. 0.8 cm mass within the endometrial cavity, potentially endometrial or exophy tic and myometrial in origin. Neoplasm can not be excluded and clinical follow-up including direct visualization and tissue sampl ing are recommended given the context. 2. Fluid within the endometrial cavity is nonspecific but unexpected in a postm enopausal female, compatible with the provided history. This may be related to the above finding. 3. Presumed fibroids up to 2.8 cm, the larger of which demonstrates a small sub mucosal component. This could be an additional etiology for abnormal bleeding. 4. Nonvisualized bilateral ovaries. 5. Additional description as above. Reading Location: [id number]
== END | disposition home or self-care (01) ==
LOC: US 09:17
PROVIDERS: PCP Family Medicine; Referring Provider Nurse Practitioner Women's Health; Visit Provider Nurse Practitioner Women's Health
DX: N95.0 Postmenopausal bleeding (principal)
CPT/HCPCS: 76830

== ENCOUNTER 2024-12-13 11:14 | Day surgery (SDC) | payer MEDICARE, SELFPAY ==
--- NOTE | 2024-12-06 09:42 | EKG12_ITS ---
Test Reason : PRE OP Blood Pressure : */* mmHG Vent. Rate : 64 BPM Atrial Rate : 64 BPM P-R Int : 158 ms QRS Dur : 80 ms QT Int : 406 ms P-R-T Axes : 45 49 -12 degrees QTcB Int : 418 ms Normal sinus rhythm Septal infarct , age undetermined Abnormal ECG Non-specific ST & T wave changes Confirmed by Hima Stapleton ([id number]), purchase request editor CARRIE DANIELS ([id number]) on 12/09/2024 12:11:11 PM Referred By: Micaela Jett Confirmed By: Hima Stapleton
[2024-12-06 11:42] LABS: ALB/GLOB Ratio 1.6 RATIO (0.9-2.4); AST(SGOT) 24 U/L (<=31); Alanine Aminotransfer ALT/SGPT 26 U/L (<=34); Albumin, Serum 4.3 g/dL (3.4-4.8); Alkaline Phosphatase 56 U/L (35-104); Anion Gap 13 (5-15); BUN 16 mg/dL (4-19); BUN/Creat Ratio 17.3 RATIO (10-20); Calcium,Total 9.6 mg/dL (7.6-11.0); Carbon Dioxide 21.1 mmol/L (21.0-32.0); Chloride 107 mmol/L (98-108); Creatinine, Serum 0.93 mg/dL (0.70-1.20); EST Glomerular Filtration Rate 67 (>60); Estimated Creatinine Clearance 56.78 ml/min (50-250); Globulin 2.6 g/dL (2.2-4.2); Glucose 103 mg/dL (70-99); Potassium 4.4 mmol/L (3.3-5.1); Protein, Total 6.9 g/dL (5.9-8.4); Sodium Level 142 mmol/L (133-145); Total Bilirubin 0.36 mg/dL (0.00-1.30)
--- NOTE | 2024-12-07 12:04 | PAT.ANESEVAL ---
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 When Was Last Pacemaker Check QUESTION #4 FULL TEXT: You/Your Family Experience fever (hyperthermia) with Anesthesia Last Oral Intake Last Oral intake: Last Oral Intake NPO since Meds taken in AM with sips of water? 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 Female Yes 11/29/24 08:52 HX of Motion Sickness No 11/29/24 08:52 HX of N/V After Surgery No 11/29/24 08:52 Non-Smoker Yes 11/29/24 08:52 Duration of Surgery greater No 11/29/24 08:52 than 60 minutes Number of Risk Factors 2 11/29/24 08:52 PONV Score Moderate Risk 11/29/24 08:52 Height & Weight Height & Weight: Anesthesia: Height & Weight Height 5 ft 8 in 11/03/24 13:09 Respiratory Assessment Respiratory Assessment - aerial applicator pilot: Respiratory Tract Infection Hx - aerial applicator pilot Hx Respiratory Tract Infection No 11/29/24 08:52 STOP Sleep Apnea STOP Sleep Apnea - aerial applicator pilot: STOP Sleep Apnea - aerial applicator pilot Hx Hypertension No 11/29/24 08:52 Hx Sleep Apnea No 11/29/24 08:52 CPAP BIPAP Do you snore loudly (louder No 11/29/24 08:52 than talking or can be heard Do you often feel tired/ No 11/29/24 08:52 fatigued/ sleepy during daytime? Has anyone observed you stop No 11/29/24 08:52 breathing during sleep? STOP Results Negative 11/29/24 08:52 QUESTION #5 FULL TEXT : Do you snore loudly (louder than talking or can be heard through closed doors)? 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 Specify any problems Hx of Preganancy in last 3 N/A 11/29/24 08:52 Months Nurse Filling Out Transfusion NBUCHER 11/29/24 08:52 & Questions: Date: 11/29/24 11/29/24 08:52 Time: 08:53 11/29/24 08:52 Patient unable to answer at this time (ie. confused, unrespo /Reproduction History /Reproductive History - aerial applicator pilot: /Reproductive Hx- aerial applicator pilot Hx Now No 11/29/24 08:52 Gestational Age (in weeks): EDC: Hx Hx Para Hx Section SAB No 11/29/24 08:52 [facility] Medical History (Updated 11/29/24 @ 08:57 by Charline Hilario) Post-menopausal History of Clostridium difficile infection Wears glasses High cholesterol Migraine headache Non-smoker Leg cramps Lacunar stroke Home Medications ?Medication ?Instructions ?Recorded ?Last Taken ?Type rosuvastatin 5 mg tablet (Crestor) 5 mg PO DAILY #90 tabs 08/16/24 Unknown Rx biotin 5 mg capsule 5 mg PO DAILY 11/29/24 Unknown History lactobacillus comb no.10 20 20,000 mmu cells PO DAILY 11/29/24 Unknown History billion cell capsule (Probiotic) magnesium 200 mg tablet 200 mg PO DAILY PRN cramps 11/29/24 Unknown History melatonin 3 mg capsule 3 mg PO QHS 11/29/24 Unknown History Allergy/AdvReac Type Severity Reaction Status Date / Time clindamycin Allergy Severe cdif Verified 11/29/24 08:49 tetracycline Allergy Intermediate hives Verified 11/29/24 08:49 Family History Sister Alcoholic Anxiety Mother Arthritis Surgical History (Updated 11/29/24 @ 08:57 by Charline Hilario) History of colonoscopy H/O lumpectomy History of back surgery Social History number of children: 3 Smoking Status: Never smoker alcohol intake: current alcohol intake frequency: 0-2 drinks per day Alcohol type: wine substance use type: does not use what type of physical activity do you participate in: walking Audit: Pertinent Findings Pertinent Findings EKG Perinent findings: Normal sinus rhythm Septal infarct , age undetermined Recommendation Anesthesia Recommendation Anesthesia recommendation: OPTIMIZED for anesthesia
[2024-12-07 12:25] LABS: Hematocrit 43.5 % (37-47); Hemoglobin 14.4 g/dL (12.0-15.0); Mean Corp Hgb Conc 33.1 g/dL (32-36); Mean Corpuscular Hgb 32.4 pg (27.0-32.0); Mean Platelet Vol. 11.1 fl (6.2-12.0); Platelet Count 280 K/mm3 (150-450); RBC Distribution Width CV 13.5 % (11.6-14.6); RBC Distribution Width SD 48.8 fl (35.1-43.9); Red Blood Count 4.44 M/mm3 (4.2-5.4); White Blood Count 6.2 K/mm3 (4.4-11.0)
[2024-12-13] VITALS (8 sets, daily range): BP systolic 110–139; BP diastolic 71–94; PULSE 61–80; RESP 16–18; TEMP 36.3–36.7; O2SAT 94–100; BMI 24.7
--- NOTE | 2024-12-13 11:27 | HP.PCM_ITS ---
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 Is patient in pain?: No Allergies clindamycin Allergy (Severe, Verified 11/03/24 13:13) cdiftetracycline Allergy (Intermediate, Verified 11/03/24 13:13) hives Medications ?Medication ?Instructions ?Recorded ?Confirmed ?Type rosuvastatin 5 mg tablet (Crestor) 5 mg PO DAILY #90 tabs 08/16/24 11/03/24 Rx Post menopausal: No Patient : No : No PFSH Medical History Lacunar stroke Surgical History H/O lumpectomy History of back surgery Family History Sister Alcoholic AnxietyMother Arthritis Social History number of children: 3 Smoking Status: Never smoker alcohol intake: current alcohol intake frequency: 0-2 drinks per day Alcohol type: wine substance use type: does not use what type of physical activity do you participate in: walking HPI Consult D&C needs 20 min Details: ANNABELLA SPRAGUE is a 69 year old who presents for a preoperative D&C exam. She had some dark brown discharge back in June. Ultrasound showed some fibroids and a possible endometrial polyp. She is status post polypectomy of the cervix as well. ultrasound is as follows: FINDINGS: Uterus: 6.8 x 5.6 x 3.0 cm, Retroflexed. Ill-defined heterogeneous mixed echogenicity presumed fibroid posteriorly measures 2.8 x 2.4 x 1.9 cm. This is largely intramural but demonstrates submucosal and subserosal components. Additional hypoechoic presumed fibroid measures 0.9 x 1.2 x 1.1 cm and appears mostly intramural although with a subserosal component. Endometrium: Difficult to discretely measure. Fluid is present in the endometrial cavity, outlining an isoechoic mass measuring 0.8 x 0.6 x 0.7 cm. No detected vascularity. Cervix: Grossly unremarkable.. Right ovary: Not visualized. Left ovary: Nonvisualized. Free fluid: None visualized. Other: None. US/Transvaginal Non- IMPRESSION: 1. 0.8 cm mass within the endometrial cavity, potentially endometrial or exophytic and myometrial in origin. Neoplasm can not be excluded and clinical follow-up including direct visualization and tissue sampling are recommended given the context. 2. Fluid within the endometrial cavity is nonspecific but unexpected in a postmenopausal female, compatible with the provided history. This may be related to the above finding. 3. Presumed fibroids up to 2.8 cm, the larger of which demonstrates a small submucosal component. This could be an additional etiology for abnormal bleeding. 4. Nonvisualized bilateral ovaries. 5. Additional description as above. History 2 Elective abortions Hx Para 3 Spontaneous abortions Hx # Term Pregnancies Ectopic pregnancies Hx # Pregnancies Multiple births 1 # of living children 3 Coding Level of Care Code Off vis,est,level 4 Diagnoses Stenotic cervical os N88.2 Cervical polyp N84.1 Post-menopausal bleeding N95.0 Assessment and Plan Assessment and Plan (1) Stenotic cervical os: Status: Acute Comment: EMB deferred (2) Cervical polyp: Status: Acute Comment: benign (3) Post-menopausal bleeding: Status: Acute Comment: light spot on tissue X 1 05/2024. US 1mm lining. fluid within endometrium. small fibroid. ?polyp Plan After discussing the patient's diagnosis and treatment plan options, patient wishes to proceed with surgical management. I have discussed with the patient the risks, benefits, and alternatives of the procedure which include but are not limited to risks of anesthesia, bleeding, infection, possible damage to bowel, bladder, or surrounding vasculature which could lead to additional surgery to evaluate any complications. Patient agrees to procedure and wishes to proceed. ACOG/uptodate references given for additional information regarding procedure. plan for hysteroscopy D&C, possible polypectomy or myomectomy pending findings. we discussed that due to her stenotic cervix we may not be able to do any of this and will need to discuss either hysterectomy or close observation.
--- NOTE | 2024-12-13 11:27 | DCINST_ITS ---
Discharge Instructions Diet Discharge Diet: No restrictions DC O2, CPAP, BIPAP needs Home O2 Discharge instructions: No Dressing / Incision Discharge Activity: Return to Normal Activity, May Shower and May Take a Tub Bath (after 1 week) May resume sexual activity in: 1-2 weeks Weight Bearing Status: Weight bearing as tolerated Lifting Restrictions: none Dressing / Incision Call your doctor if you observe: Fever of 101 or Higher, Using more than 1 pad per hour, Shortness of breath and Uncontrolled pain Follow Up Care Please Follow Up With: Micaela Jett DO When: Call [phone] to schedule appointment. Test Results: Test results from this visit will be discussed in further detail at your follow- up appointment, if applicable. Discharge Plan Admission Attending Provider: Micaela Jett Primary Care Provider: Elfego Washington Instructions Print Language: Turkish Discharge Orders/Prescriptions Prescriptions: No Action rosuvastatin [Crestor] 5 mg tablet 5 mg PO DAILY Qty: 90 3RF Probiotic 20 billion cell capsule 20,000 mmu cells PO DAILY Rx Instructions: administer with a meal biotin 5 mg capsule 5 mg PO DAILY magnesium 200 mg tablet 200 mg PO DAILY PRN (Reason: cramps) melatonin 3 mg capsule 3 mg PO QHS Other Ambulatory Orders: 12 Lead EKG (Routine) Timeframe: [id number] Location: None Selected Ordered By: Dr. Roass Butler Referrals / Follow Up: Elfego Washington DO [Primary Care Provider] - Disposition Disposition (needs filled in before D/C Order can be placed): Home, Self Care
[2024-12-13] MEDS: Lactated Ringers 1,000 ML 15 ML IV (11:58)
--- NOTE | 2024-12-13 12:14 | PCM.PRE.AN2 ---
ASA Classification* ASA Classification ASA Classification: 3 Assessment & Plan Anesthesia* Anesthesia Assessment Anesthesia Assessment: Discussed sedation and/or anesthesia options, risks, benefits, and alternatives with patient/parents/legal guardian/POA. Questions invited. The patient/parents/legal guardian/POA seems to understand and agrees to proceed with anesthesia plan. Reviewed the physical assessment, medical history, allergy history and patient home medications list prior to surgery/procedure/anesthetic and documented any changes. Performed airway and anesthesia risk assessments. Anesthesia Type Anesthesia Type: General History Source History Obtained from:: Patient and Chart Anesthesia Focused Assessment* Temperature: 98 F Pulse Rate: 61 Blood Pressure: 139/94 Respiratory Rate: 16 Pulse Ox: 98 Airway Assessment Mouth opens: >3 cm Mallampati Score: II Focused Labs Anesthesia Preop lab: CBC WBC 6.2 K/mm3 (4.4-11.0) 12/07/24 10:12/07/24 RBC 4.44 M/mm3 (4.2-5.4) 12/07/24 10:12/07/24 Hgb 14.4 g/dL (12.0-15.0) 12/07/24 10:12/07/24 Hct 43.5 % (37-47) 12/07/24 10:12/07/24 Plt Count 280 K/mm3 (150-450) 12/07/24 10:20 12/07/24 CHEMISTRY Potassium 4.4 mmol/L (3.3-5.1) 12/06/24 10:12/06/24 Sodium 142 mmol/L (133-145) 12/06/24 10:12/06/24 BUN 16 mg/dL (4-19) 12/06/24 10:12/06/24 Creatinine 0.93 mg/dL (0.70-1.20) 12/06/24 10:12/06/24 Glucose 103 mg/dL (70-99) H 12/06/24 10:12/06/24 COAG Pre-Assessment Diagnosis/Proposed Procedure Planned Operative Procedure(s): Hysteroscopy,Myomectomy with Symphion Anesthesia History 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 When Was Last Pacemaker Check QUESTION #4 FULL TEXT: You/Your Family Experience fever (hyperthermia) with Anesthesia Last Oral Intake Last Oral intake: Last Oral Intake NPO since 23:30 12/13/24 11:46 Meds taken in AM with sips of water? Meds patient instructed to take am of surgery PONV PONV - biochemical development engineer: PONV - biochemical development engineer Female Yes 11/29/24 08:52 HX of Motion Sickness No 11/29/24 08:52 HX of N/V After Surgery No 11/29/24 08:52 Non-Smoker Yes 11/29/24 08:52 Duration of Surgery greater No 11/29/24 08:52 than 60 minutes Number of Risk Factors 2 11/29/24 08:52 PONV Score Moderate Risk 11/29/24 08:52 Height & Weight Height & Weight: Anesthesia: Height & Weight Height 5 ft 8 in 12/13/24 11:46 Weight: 73.7 kg 12/13/24 11:46 Body Mass Index (BMI) 24.7 12/13/24 11:46 Respiratory Assessment Respiratory Assessment - biochemical development engineer: Respiratory Tract Infection Hx - biochemical development engineer Hx Respiratory Tract Infection No 11/29/24 08:52 STOP Sleep Apnea STOP Sleep Apnea - biochemical development engineer: STOP Sleep Apnea - biochemical development engineer Hx Hypertension No 11/29/24 08:52 Hx Sleep Apnea No 11/29/24 08:52 CPAP BIPAP Do you snore loudly (louder No 11/29/24 08:52 than talking or can be heard Do you often feel tired/ No 11/29/24 08:52 fatigued/ sleepy during daytime? Has anyone observed you stop No 11/29/24 08:52 breathing during sleep? STOP Results Negative 11/29/24 08:52 QUESTION #5 FULL TEXT : Do you snore loudly (louder than talking or can be heard through closed doors)? Tobacco Use History Tobacco Use History - biochemical development engineer: Tobacco Use History - biochemical development engineer Tobacco Use Smoking Status Never smoker 11/29/24 08:52 Hx Tobacco Use No 11/29/24 08:52 Years Smoking Packs Smoked per Day Smoking Cessation Date was within the last 15 years Hx Smoking Cessation Date Hx Smoking Cessation Counseling Hematologic Medial History Hematologic Hx - biochemical development engineer: Hematologic Medical Hx - ostomy nurse Hx of Blood Transfusion No 11/29/24 08:52 Hx of Transfusion in last 3 No 11/29/24 08:52 Months Date of Last Transfusion (if within last 3 months) Ever experience any problems No 11/29/24 08:52 with transfusion(s)? Specify any problems Hx of Preganancy in last 3 N/A 11/29/24 08:52 Months Nurse Filling Out Transfusion NBUCHER 11/29/24 08:52 & Questions: Date: 11/29/24 11/29/24 08:52 Time: 08:53 11/29/24 08:52 Patient unable to answer at this time (ie. confused, unrespo /Reproduction History /Reproductive History - biochemical development engineer: /Reproductive Hx- biochemical development engineer Hx Now No 11/29/24 08:52 Gestational Age (in weeks): EDC: Hx Hx Para Hx Section SAB No 11/29/24 08:52 Active Medications Active Medications: Current Medications Generic Name Dose Route Start Last Admin Trade Name Freq PRN Reason Stop Dose Admin Lactated Ringer's 1,000 mls @ 15 mls/hr 12/13/24 11:45 12/13/24 11:58 IV 15 mls/hr .Q48H LEIGHTON Administration PFSH Medical History (Updated 11/29/24 @ 08:57 by Charline Hilario) Post-menopausal History of Clostridium difficile infection Wears glasses High cholesterol Migraine headache Non-smoker Leg cramps Lacunar stroke Home Medications ?Medication ?Instructions ?Recorded ?Last Taken ?Type rosuvastatin 5 mg tablet (Crestor) 5 mg PO DAILY #90 tabs 08/16/24 Unknown Rx biotin 5 mg capsule 5 mg PO DAILY 11/29/24 Unknown History lactobacillus comb no.10 20 20,000 mmu cells PO DAILY 11/29/24 Unknown History billion cell capsule (Probiotic) magnesium 200 mg tablet 200 mg PO DAILY PRN cramps 04/29/25 Unknown History melatonin 3 mg capsule 3 mg PO QHS 11/29/24 Unknown History naproxen 500 mg tablet 500 mg PO BID PRN pain #20 tabs 12/13/24 Unknown Rx Allergy/AdvReac Type Severity Reaction Status Date / Time clindamycin Allergy Severe cdif Verified 12/13/24 11:40 tetracycline Allergy Intermediate hives Verified 12/13/24 11:40 Family History Sister Alcoholic Anxiety Mother Arthritis Surgical History (Updated 11/29/24 @ 08:57 by Charline Hilario) History of colonoscopy H/O lumpectomy History of back surgery Social History number of children: 3 Smoking Status: Never smoker alcohol intake: current alcohol intake frequency: 0-2 drinks per day Alcohol type: wine substance use type: does not use what type of physical activity do you participate in: walking Review of Systems (Anesthesia) ROS Narrative System reviewed and no additional complaints, except as documented. Physical Exam Const alert and oriented x3
--- NOTE | 2024-12-13 12:17 | PCM.PRE.AN2 ---
ASA Classification* ASA Classification ASA Classification: 3 Assessment & Plan Anesthesia* Anesthesia Assessment Anesthesia Assessment: Discussed sedation and/or anesthesia options, risks, benefits, and alternatives with patient/parents/legal guardian/POA. Questions invited. The patient/parents/legal guardian/POA seems to understand and agrees to proceed with anesthesia plan. Reviewed the physical assessment, medical history, allergy history and patient home medications list prior to surgery/procedure/anesthetic and documented any changes. Performed airway and anesthesia risk assessments. Anesthesia Type Anesthesia Type: General History Source History Obtained from:: Patient and Chart Anesthesia Focused Assessment* Temperature: 98 F Pulse Rate: 61 Blood Pressure: 139/94 Respiratory Rate: 16 Pulse Ox: 98 Oxygen Delivery Method: Room Air Airway Assessment Mouth opens: >3 cm Mallampati Score: II Teeth Condition: Intact Focused Labs Anesthesia Preop lab: CBC WBC 6.2 K/mm3 (4.4-11.0) 12/07/24 10:12/07/24 RBC 4.44 M/mm3 (4.2-5.4) 12/07/24 10:12/07/24 Hgb 14.4 g/dL (12.0-15.0) 12/07/24 10:12/07/24 Hct 43.5 % (37-47) 12/07/24 10:12/07/24 Plt Count 280 K/mm3 (150-450) 12/07/24 10:20 12/07/24 CHEMISTRY Potassium 4.4 mmol/L (3.3-5.1) 12/06/24 10:12/06/24 Sodium 142 mmol/L (133-145) 12/06/24 10:12/06/24 BUN 16 mg/dL (4-19) 12/06/24 10:12/06/24 Creatinine 0.93 mg/dL (0.70-1.20) 12/06/24 10:12/06/24 Glucose 103 mg/dL (70-99) H 12/06/24 10:12/06/24 COAG Pre-Assessment Diagnosis/Proposed Procedure Planned Operative Procedure(s): Hysteroscopy,Myomectomy with Symphion Anesthesia History Anesthesia History - wicker molded candles: Anesthesia History - wicker molded candles Hx Hospitalization No 04/29/25 08:52 Any Problems With Anesthesia No 11/29/24 08:52 Cholinesterase deficiency No 11/29/24 08:52 You/Your Family Experience No 11/29/24 08:52 fever (hyperthermia) with Relationship Recent Exposure to Contagious No 12/13/24 11:46 Disease Does patient have nerve No 11/29/24 08:52 stimulator Patient instructed to have device shut off --Does patient have Pacemaker No 12/13/24 11:46 or ICD? When Was Last Pacemaker Check QUESTION #4 FULL TEXT: You/Your Family Experience fever (hyperthermia) with Anesthesia Last Oral Intake Last Oral intake: Last Oral Intake NPO since 23:30 12/13/24 11:46 Meds taken in AM with sips of water? Meds patient instructed to take am of surgery PONV PONV - wicker molded candles: PONV - wicker molded candles Female Yes 11/29/24 08:52 HX of Motion Sickness No 11/29/24 08:52 HX of N/V After Surgery No 11/29/24 08:52 Non-Smoker Yes 11/29/24 08:52 Duration of Surgery greater No 11/29/24 08:52 than 60 minutes Number of Risk Factors 2 11/29/24 08:52 PONV Score Moderate Risk 11/29/24 08:52 Height & Weight Height & Weight: Anesthesia: Height & Weight Height 5 ft 8 in 12/13/24 11:46 Weight: 73.7 kg 12/13/24 11:46 Body Mass Index (BMI) 24.7 12/13/24 11:46 Respiratory Assessment Respiratory Assessment - wicker molded candles: Respiratory Tract Infection Hx - wicker molded candles Hx Respiratory Tract Infection No 11/29/24 08:52 STOP Sleep Apnea STOP Sleep Apnea - wicker molded candles: STOP Sleep Apnea - wicker molded candles Hx Hypertension No 11/29/24 08:52 Hx Sleep Apnea No 11/29/24 08:52 CPAP BIPAP Do you snore loudly (louder No 11/29/24 08:52 than talking or can be heard Do you often feel tired/ No 11/29/24 08:52 fatigued/ sleepy during daytime? Has anyone observed you stop No 11/29/24 08:52 breathing during sleep? STOP Results Negative 11/29/24 08:52 QUESTION #5 FULL TEXT : Do you snore loudly (louder than talking or can be heard through closed doors)? Tobacco Use History Tobacco Use History - wicker molded candles: Tobacco Use History - wicker molded candles Tobacco Use Smoking Status Never smoker 11/29/24 08:52 Hx Tobacco Use No 11/29/24 08:52 Years Smoking Packs Smoked per Day Smoking Cessation Date was within the last 15 years Hx Smoking Cessation Date Hx Smoking Cessation Counseling Hematologic Medial History Hematologic Hx - wicker molded candles: Hematologic Medical Hx - base ply hand Hx of Blood Transfusion No 11/29/24 08:52 Hx of Transfusion in last 3 No 11/29/24 08:52 Months Date of Last Transfusion (if within last 3 months) Ever experience any problems No 11/29/24 08:52 with transfusion(s)? Specify any problems Hx of Preganancy in last 3 N/A 11/29/24 08:52 Months Nurse Filling Out Transfusion [facility]BU[facility] 11/29/24 08:52 & Questions: Date: 11/29/24 11/29/24 08:52 Time: 08:53 11/29/24 08:52 Patient unable to answer at this time (ie. confused, unrespo /Reproduction History /Reproductive History - wicker molded candles: /Reproductive Hx- wicker molded candles Hx Now No 11/29/24 08:52 Gestational Age (in weeks): EDC: Hx Hx Para Hx Section SAB No 11/29/24 08:52 Active Medications Active Medications: Current Medications Generic Name Dose Route Start Last Admin Trade Name Freq PRN Reason Stop Dose Admin Lactated Ringer's 1,000 mls @ 15 mls/hr 12/13/24 11:45 12/13/24 11:58 IV 15 mls/hr .Q48H LE[place]ON Administration PFSH Medical History (Updated 11/29/24 @ 08:57 by Charline Hilario) Post-menopausal History of Clostridium difficile infection Wears glasses High cholesterol Migraine headache Non-smoker Leg cramps Lacunar stroke Home Medications ?Medication ?Instructions ?Recorded ?Last Taken ?Type rosuvastatin 5 mg tablet (Crestor) 5 mg PO DAILY #90 tabs 08/16/24 Unknown Rx biotin 5 mg capsule 5 mg PO DAILY 11/29/24 Unknown History lactobacillus comb no.10 20 20,000 mmu cells PO DAILY 11/29/24 Unknown History billion cell capsule (Probiotic) magnesium 200 mg tablet 200 mg PO DAILY PRN cramps 11/29/24 Unknown History melatonin 3 mg capsule 3 mg PO QHS 11/29/24 Unknown History naproxen 500 mg tablet 500 mg PO BID PRN pain #20 tabs 12/13/24 Unknown Rx Allergy/AdvReac Type Severity Reaction Status Date / Time clindamycin Allergy Severe cdif Verified 12/13/24 11:40 tetracycline Allergy Intermediate hives Verified 12/13/24 11:40 Family History Sister Alcoholic Anxiety Mother Arthritis Surgical History (Updated 11/29/24 @ 08:57 by Charline Hilario) History of colonoscopy H/O lumpectomy History of back surgery Social History number of children: 3 Smoking Status: Never smoker alcohol intake: current alcohol intake frequency: 0-2 drinks per day Alcohol type: wine substance use type: does not use what type of physical activity do you participate in: walking Addt'l Information Additional Findings: EKG NSR Review of Systems (Anesthesia) ROS Narrative System reviewed and no additional complaints, except as documented. Physical Exam Const alert and oriented x3 Orientation / Consciousness: awake Resp normal respiratory effort and normal air movement Auscultation: clear to auscultation bilaterally Cardio regular rate Neuro oriented x3 and moves all extremities
[2024-12-13] MEDS: Lidocaine 1% (20 ml mdv) 20 ML Vial (12:40)
--- NOTE | 2024-12-13 12:48 | OP.PCM_ITS ---
Problems Associated Problem List Diagnoses (1) Stenotic cervical os: (2) Post-menopausal bleeding: Multi Select Codes Urinary/Genital Urinary/Genital CPT Codes: 28412 Hysteroscopy, diagnostic Operative Report (Standard) Operative Information Date of Procedure: 12/13/24 Pre-Operative Diagnosis: postmenopausal bleeding, submucosal fibroid on ultrasound Post-Operative Diagnosis: postmenopausal bleeding, submucosal fibroid on ultrasound, cervical stenosis Surgery/Procedure Performed: attempted hysteroscopy with cervical dilation behavioral health aide: Yes Field Case Manager: Lester Goyal Tasks completed by food and beverage assistant manager: Retracting Type of Anesthesia: MAC and Topical Anesth RN Documented Start/Stop Times: Operation Date: 12/13/24 13:00 Case Time Into Pre-Op 12/13/24 11:33 Out of Pre-Op 12/13/24 12:20 Anesthesia Start 12/13/24 12:23 Into Room 12/13/24 12:23 Procedure Start 12/13/24 12:35 Procedure Start Time: 12:35 Procedure Stop Time: 12:48 Select all DRAINS/GRAFTS/IMPLANTS that apply: None Estimated Blood Loss: 3cc Specimen collected: No Description of surgery: Patient was prepped and draped in a normal sterile fashion under MAC anesthesia. A weighted speculum was placed in the vagina and the anterior lip of the cervix was grasped with a single-tooth tenaculum. A paracervical block was placed with 1% lidocaine. The cervix was noted to have a dimple of an os. This was slowly opened superficially followed by further dilation using a long alan clamp. The hysteroscope was inserted into the cervix and the tissu appeared white and firm. Suspicion of cervical fibroid made. Further dilation was attempted until a small posterior uterine perforation was incidentally created. No bleeding was noted and the camera was pulled back immediately. The procedure was aborted. The single tooth tenaculum was removed and minimal bleeding was noted. Surgical Findings: cervical stenosis and high suspicion for cervical fibroid. no specimen collected due to incidental uterine perforation Complications Complications: No Admit VTE Documentation VTE Present on Admission: No VTE Mechan Device Prophylaxis: SCD's VTE Pharm Prophylaxis ordered?: No
--- NOTE | 2024-12-13 13:00 | PCM.POST.ANE ---
Anesthesia: Postop Eval I Current Vital Signs Temperature: 97.9 F Pulse Rate: 80 Blood Pressure: 110/80 Respiratory Rate: 18 Pulse Ox: 98 Oxygen Delivery Method: Room Air Assessment Airway patent: Yes Spontaneous unlabored respirations: Yes Mental status: Awake nausea: No Vomiting: No Anesthesia Complication: No Fluid Hydration Crystalloid volume administer (ml): 500 Total IV fluid infused: 500 Progress Note Anesthesia document: Postop Eval 1 completed: Yes
[2024-12-13] MEDS: Acetaminophen 500 MG Tablet 1000 MG PO (13:28)
[2024-12-13] MEDS: Naproxen 500 MG Tablet PO (13:36)
--- NOTE | 2024-12-13 13:55 | POSTOPAN2_ITS ---
Anesthesia Postop Eval I Sum Postop Eval Completion status Anesthesia document: Postop Eval 1 completed: Yes Anesthesia Postop Eval I Summary Anesthesia Postop Eval I Summary: Anesthesia Postop Eval I: Assessment Summary Airway patent Yes 12/13/24 13:00 SETTER JUICE PACKAGING MACHINES.JCLI Spontaneous unlabored Yes 12/13/24 13:00 SETTER JUICE PACKAGING MACHINES.GEORGETTE respirations Mental status Awake 12/13/24 13:00 SETTER JUICE PACKAGING MACHINES.SIMONLI nausea No 12/13/24 13:00 SETTER JUICE PACKAGING MACHINES.SIMONLI Vomiting No 12/13/24 13:00 SETTER JUICE PACKAGING MACHINES.GEORGETTE Anesthesia Postop Eval I: Fluid Summary Crystalloid volume administer 500 12/13/24 13:00 SETTER JUICE PACKAGING MACHINES.JCLI (ml) Colloids volume administered ( ml) Blood Product volume administered (ml) Total IV fluid infused 500 12/13/24 13:00 SETTER JUICE PACKAGING MACHINES.GEORGETTE Anesthesia Postop Eval I: Summary Notes Anesthesia Complication No 12/13/24 13:00 SETTER JUICE PACKAGING MACHINES.GEORGETTE Anesthesia Complication Comment: Post-operative progress note Anesthesia: Postop Eval II Evaluation Mental status: Awake and Calm Pain Level: 3 nausea: No Vomiting: No Complications Anesthesia Complication: No
--- NOTE | 2024-12-13 13:55 | PCM.POSTANE2 ---
Anesthesia Postop Eval I Sum Postop Eval Completion status Anesthesia document: Postop Eval 1 completed: Yes Anesthesia Postop Eval I Summary Anesthesia Postop Eval I Summary: Anesthesia Postop Eval I: Assessment Summary Airway patent Yes 12/13/24 13:00 [email or web address] Spontaneous unlabored Yes 12/13/24 13:00 REVENUE [email or web address] respirations Mental status Awake 12/13/24 13:00 REVENUE [email or web address] nausea No 12/13/24 13:00 REVENUE [email or web address] Vomiting No 12/13/24 13:00 REVENUE MANAGER.[email or web address] Anesthesia Postop Eval I: Fluid Summary Crystalloid volume administer 500 12/13/24 13:00 REVENUE [email or web address] (ml) Colloids volume administered ( ml) Blood Product volume administered (ml) Total IV fluid infused 500 12/13/24 13:00 REVENUE MANAGER.[email or web address] Anesthesia Postop Eval I: Summary Notes Anesthesia Complication No 12/13/24 13:00 REVENUE [email or web address] Anesthesia Complication Comment: Post-operative progress note Anesthesia: Postop Eval II Evaluation Mental status: Awake and Calm Pain Level: 3 nausea: No Vomiting: No Complications Anesthesia Complication: No
== END 2024-12-13 14:11 | disposition home or self-care (01) ==
LOC: SDC 11:14 → AC 11:18
PROVIDERS: PCP Family Medicine; Referring Provider Obstetrics & Gynecology; Visit Provider Obstetrics & Gynecology
PROC: 0UB98ZZ Excision of Uterus, Via Natural or Artificial Opening Endoscopic (ICD-10-PCS; CPT 58558; principal; 2024-12-13 12:45)
DX: N88.2 Stricture and stenosis of cervix uteri (principal); N95.0 Postmenopausal bleeding; S37.69XA Other injury of uterus, initial encounter; Y65.8 Other specified misadventures during surgical and medical care; N84.1 Polyp of cervix uteri; Z53.8 Procedure and treatment not carried out for other reasons; E78.00 Pure hypercholesterolemia, unspecified; Z79.899 Other long term (current) drug therapy
CPT/HCPCS: 58555; 00952; 36415; 80053; 85027; 86850; 86900; 86901; 93005; J2405

== ENCOUNTER → 2025-02-01 | Outpatient (CLI) | payer MEDICARE, SELFPAY ==
--- NOTE | 2025-02-01 11:15 | MRI_ITS ---
PROCEDURE: PELVIS W/WO CONTRAST, 02/01/2025 REASON FOR EXAM: FIBROID TECHNIQUE: Multisequence multiplanar MR of the pelvis was performed with and without IV contrast. IV contrast: 15 mL Clariscan COMPARISON: 10/11/2024 FINDINGS: Variable overall mild/moderate motion limitation. Diffusion not performed. No large [id number] through the pelvis was performed. Visualized bowel: Not well evaluated by MRI; no gross bowel dilatation Lymph nodes: Unremarkable. Vasculature: Unremarkable. Peritoneum: Trace pelvic free fluid. Bladder: Underdistended and suboptimally evaluated, grossly unremarkable. Reproductive Organs: Anteverted and retroflexed uterus. Multiple T2 dark hypoenhancing presumed uterine fibroids. Largest measures 2.0 x 2.7 x 1.9 cm along the anterior fundus is mostly intramural but demonstrates a submucosal component. Additional dominant lesion along the posterior fundus appears mostly intramural with subserosal components measuring 1.3 x 1.0 x 0.9 cm. Additional similar appearing presumed fibroids measure 1.2 cm or less. Normal endometrial thickness. A T1 isointense T2 intermediate to dark enhancing polypoid lesion within or protruding into the anterior endometrial cavity, measuring 7 x 6 x 6 mm, corresponding with the previous sonographic finding. This is outlined by endometrium which demonstrates some T1 hyperintensity suggesting possible blood products. Endometrial thickness approximates 6 mm, immediately above this level. Ovaries partially imaged on some axial, grossly unremarkable atrophic postmenopausal appearance on coronal sequences though suboptimally evaluated due to motion. Body Wall: Unremarkable. Bones: Unremarkable. MRI/Pelvis W/WO Contrast IMPRESSION: 1. Presumed uterine fibroids up to 2.7 cm, largest along the anterior fundus wi th submucosal components as described. This could again be a source of abnormal bleeding. 2. Redemonstrated 0.7 cm polypoid lesion within the endometrial cavity, corresp onding to the previous sonographic finding, outlined by endometrium which demonstrates signal characteristics suggestive of a small amount of blood products. Differential considerations include a pedunculated intracavitary/submucosal fibroid projecti ng into the endometrial cavity versus an endometrial polyp. Differential considerations are unchanged and direct visual ization/tissue sampling/resection versus close follow-up should again be considered, as indicated. 3. Endometrial thickness 6 mm, technically mildly abnormal in the setting of ab normal bleeding, also warranting tissue sampling to exclude endometrial neoplasia. 4. Trace pelvic free fluid, nonspecific but unexpected given the patient is pos tmenopausal. 5. Additional description as above. Reading Location: [place]
== END | disposition home or self-care (01) ==
LOC: OPMRI 10:56
PROVIDERS: PCP Family Medicine; Referring Provider Obstetrics & Gynecology; Visit Provider Obstetrics & Gynecology
DX: D25.9 Leiomyoma of uterus, unspecified (principal)
CPT/HCPCS: 72197; A9575